=== PATIENT | female | born 1990 | race Caucasian/White ===

== ENCOUNTER 2023-05-09 14:19 | Emergency (ER) | payer MEDICAID | END 2023-05-09 15:13 | disposition home or self-care (01) | LOC: JP.ED 14:19 | DX: J01.01 Acute recurrent maxillary sinusitis (principal); J45.909 Unspecified asthma, uncomplicated; Z88.0 Allergy status to penicillin; Z88.1 Allergy status to other antibiotic agents; Z88.8 Allergy status to other drugs, medicaments and biological substances; Z91.018 Allergy to other foods | CPT/HCPCS: 99283 ==